=== PATIENT | female | born 1990 ===

== ENCOUNTER 2020-11-11 07:40 | Outpatient (CLI) | payer OTHER | END 2020-11-11 07:56 | disposition home or self-care (01) | LOC: SONOGRAMA 07:40 | DX: R10.2 Pelvic and perineal pain (principal); M81.0 Age-related osteoporosis without current pathological fracture; F84.0 Autistic disorder; K74.00 Hepatic fibrosis, unspecified ==

== ENCOUNTER → 2023-08-04 14:34 | Outpatient (CLI) | payer OTHER | END | disposition home or self-care (01) | LOC: SONOGRAMA 14:34 | DX: R10.2 Pelvic and perineal pain (principal) ==